=== PATIENT | male | born 1995 | race Two or more races ===

== ENCOUNTER 2022-09-28 10:52 | Inpatient (IN) | payer OTHER ==
[2022-09-28 11:51] VITALS: BMI 24.7
[2022-09-28] MEDS ORDERED: MAGNESIUM HYDROX 2400MG/30ML ORAL SUSPENSION 30 ML CUP PO PRN (12:37)
[2022-09-28] MEDS ORDERED: ACETAMINOPHEN 325 MG TABLET (FP) PO PRN ×2 (12:37)
[2022-09-28] MEDS ORDERED: IBUPROFEN 400 MG TABLET (FP) PO PRN (12:37)
[2022-09-28] MEDS ORDERED: MAG HYDROX/AL HYDROX/SIMETH 30 ML UNIT-DOSE CUP PO PRN (12:37)
[2022-09-28] MEDS ORDERED: IBUPROFEN 600 MG TABLET (FP) PO PRN (12:37)
[2022-09-28] MEDS ORDERED: BUPRENORPHINE HCL 150 MCG, BUPRENORPHINE HCL 75 MCG BC PRN (12:37)
[2022-09-28] MEDS ORDERED: POLYETHYLENE GLYCOL (HEALTHYLAX) 3350 17 GM PACKET PO PRN (12:37)
[2022-09-28] MEDS ORDERED: BISMUTH SUBSALICYLATE 524 MG/30 ML PO PRN (12:37)
[2022-09-28] MEDS ORDERED: LOPERAMIDE HCL 2 MG CAPSULE PO PRN (12:37)
[2022-09-28] MEDS ORDERED: NALOXONE HCL (KLOXXADO) 8 MG SPRAY NS PRN (12:37)
[2022-09-28] MEDS ORDERED: ONDANSETRON *ODT* 4 MG TABLET SL PRN (12:37)
[2022-09-28] MEDS ORDERED: BENZOCAINE/MENTHOL (CHLORASEPTIC ) LOZENGE MM PRN (12:37)
[2022-09-28] MEDS ORDERED: BUPRENORPHINE HCL 150 MCG FILM BC ONE (13:34)
[2022-09-28] MEDS ORDERED: BUPRENORPHINE HCL 75 MCG FILM BC ONE (13:34)
[2022-09-28] MEDS ORDERED: cloNIDine HCL 0.1 MG TABLET ONE (13:37)
[2022-09-28] MEDS ORDERED: BUPRENORPHINE HCL 150 MCG, BUPRENORPHINE HCL 75 MCG BC ONE (13:45)
[2022-09-28] MEDS ORDERED: cloNIDine HCL 0.1 MG TABLET PO ONE (13:45)
[2022-09-28] MEDS: PRENATAL VITAMINS W/ FOLIC ACID TABLET (FP) PO SCH (13:52)
[2022-09-28] MEDS: cloNIDine HCL 0.1 MG TABLET PO PRN (17:12)
[2022-09-28] MEDS: diazePAM 5 MG TABLET PO PRN ×2 (17:12→22:13)
[2022-09-28] MEDS: DICYCLOMINE HCL 10 MG CAPSULE PO PRN (17:12)
[2022-09-28] MEDS: THIAMINE HCL 100 MG TABLET (FP) PO SCH (22:12)
[2022-09-28] MEDS: MELATONIN 5 MG TABLETS PO SCH (22:14)
[2022-09-29] MEDS ORDERED: BUPRENORPHINE HCL 150 MCG, BUPRENORPHINE HCL 75 MCG BC PRN
[2022-09-29] MEDS: BUPRENORPHINE HCL 150 MCG, BUPRENORPHINE HCL 75 MCG BC SCH ×2 (05:15→17:27)
[2022-09-29] MEDS: PRENATAL VITAMINS W/ FOLIC ACID TABLET (FP) PO SCH (09:33)
[2022-09-29] MEDS: diazePAM 5 MG TABLET PO PRN ×2 (09:34→22:08)
[2022-09-29] MEDS: hydrOXYzine PAMOATE 25 MG CAPSULE (FP) PO PRN (09:34)
[2022-09-29 12:10] LABS: HEMATOCRIT 44.9 % (35.4-49); MCH 27.5 pg (25.7-33.7); MCHC 33.3 g/dl (32.0-35.9); MEAN CELL VOLUME 82.7 fl (80-96); MEAN PLT VOLUME 9.4 fl (7.5-11.1); PLATELET COUNT 247 10^3/uL (134-434); RBC 5.43 M/mm3 (4.00-5.60); RDW 14.1 % (11.9-15.9)
[2022-09-29 12:15] LABS: CALCIUM 9.7 mg/dL (8.5-10.1)
[2022-09-29 12:16] LABS: ALBUMIN 4.2 g/dl (3.4-5.0); BLOOD UREA NITROGEN 11.6 mg/dL (7-18)
[2022-09-29 12:19] LABS: CREATININE 1.1 mg/dL (0.55-1.3)
[2022-09-29 12:20] LABS: TOT PROT 7.3 g/dl (6.4-8.2)
[2022-09-29] MEDS: THIAMINE HCL 100 MG TABLET (FP) PO SCH (22:08)
[2022-09-29] MEDS: MELATONIN 5 MG TABLETS PO SCH (22:08)
[2022-09-30] MEDS: BUPRENORPHINE HCL 450 MCG FILM BC SCH ×2 (05:16→18:46)
[2022-09-30] MEDS: hydrOXYzine PAMOATE 25 MG CAPSULE (FP) PO PRN (10:09)
[2022-09-30] MEDS: diazePAM 5 MG TABLET PO PRN (10:09)
[2022-09-30] MEDS: PRENATAL VITAMINS W/ FOLIC ACID TABLET (FP) PO SCH (10:09)
[2022-09-30] MEDS: METHOCARBAMOL 500 MG TABLET PO PRN (10:09)
[2022-09-30] MEDS: cloNIDine HCL 0.1 MG TABLET PO PRN ×2 (10:11→14:11)
[2022-09-30] MEDS ORDERED: diazePAM 5 MG TABLET PO PRN (15:37)
[2022-09-30] MEDS: MELATONIN 5 MG TABLETS PO SCH (22:13)
[2022-09-30] MEDS: THIAMINE HCL 100 MG TABLET (FP) PO SCH (22:15)
[2022-09-30] MEDS: DICYCLOMINE HCL 10 MG CAPSULE PO PRN (22:15)
[2022-10-01] MEDS: BUPRENORPHINE/NALOXONE 4 MG/1 MG FILM PACKET SL SCH ×2 (05:29→18:02)
[2022-10-01] MEDS: METHOCARBAMOL 500 MG TABLET PO PRN (10:22)
[2022-10-01] MEDS: PRENATAL VITAMINS W/ FOLIC ACID TABLET (FP) PO SCH (10:22)
[2022-10-01] MEDS: cloNIDine HCL 0.1 MG TABLET PO PRN ×2 (10:22→22:10)
[2022-10-01] MEDS: THIAMINE HCL 100 MG TABLET (FP) PO SCH (22:08)
[2022-10-01] MEDS: MELATONIN 5 MG TABLETS PO SCH (22:09)
[2022-10-02] MEDS ORDERED: BUPRENORPHINE/NALOXONE 8 MG/2 MG FILM PACKET SL ONE (06:00)
[2022-10-02 09:02] VITALS: BP 120/76; PULSE 72; RESP 18; TEMP 97.7
[2022-10-02] MEDS: PRENATAL VITAMINS W/ FOLIC ACID TABLET (FP) PO SCH (09:30)
== END 2022-10-02 09:36 | disposition home or self-care (01) | DRG 773 ==
LOC: YASAS 10:52 → Y6N 13:23
PROVIDERS: ADMIT Allergy & Immunology; ATTEND Surgery
PROC: HZ2ZZZZ Detoxification Services for Substance Abuse Treatment (ICD-10-PCS; principal; 2022-09-28)
DX: F11.23 Opioid dependence with withdrawal (principal); F12.10 Cannabis abuse, uncomplicated; F19.280 Other psychoactive substance dependence with psychoactive substance-induced anxiety disorder; F19.282 Other psychoactive substance dependence with psychoactive substance-induced sleep disorder; F41.9 Anxiety disorder, unspecified; Z87.891 Personal history of nicotine dependence; Z28.310 Unvaccinated for COVID-19; Z28.9 Immunization not carried out for unspecified reason
CPT/HCPCS: 36415; 80053; 85027; 86780; 93005; 93010; C9803-CS; U0003; U0005